=== PATIENT | male | born 1945 | race Caucasian/White ===

== ENCOUNTER 2016-10-06 11:56 | Outpatient (CLI) | payer OTHER ==
--- NOTE | 2016-10-09 11:58 | DIAGNOSTIC IMAGING REPORT ---
PROCEDURE: Single day sestamibi interpretation CLINICAL INDICATION: Chest pain, CAD TECHNIQUE: 10 mCi of tech sestamibi injected at rest with SPECT tomography performed some time later the patient underwent treadmill testing with 30 mCi of tech sestamibi injected 1-2 minutes prior termination exercise with SPECT tomography then performed rest and stress images were then compared. COMPARISON: None FINDINGS: For the stress portion of the test please see Internal Medicine dictation In brief there were no EKG changes with stress or recovery reported The left ventricle with stress exhibits no ischemic defects . In comparison the rest study some breast artifact is apparent which is similarly present during rest. Ventricular size function contractility is normal with an ejection fraction of 54% IMPRESSION: Breast artifact is present No evidence for ischemic defects Normal ventricular size function contractility with an ejection fraction of 54% Comment: This is a low risk study
== END 2016-10-06 23:00 ==
LOC: NM SRH 11:56
PROC: 4A02XM4 Measurement of Cardiac Total Activity, External Approach (ICD-10-PCS; principal; 2016-10-06)
DX: R07.9 Chest pain, unspecified (principal)